=== PATIENT | female | born 2000 | race Caucasian/White ===

== ENCOUNTER 2023-05-01 17:05 | Emergency (ER) | payer SELFPAY ==
[2023-05-01 17:06] VITALS: BP 126/85
[2023-05-01 18:19] VITALS: BMI 17.8
[2023-05-01 18:25] VITALS: BP 127/87
[2023-05-01 19:00] VITALS: BP 134/88
[2023-05-01] MEDS: TYLENOL 650 MG PO (19:40)
[2023-05-01] MEDS: ZOFRAN ODT (ORALLY DISINTEGRATING) 4 MG PO (19:41)
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
[2023-05-01 20:00] VITALS: BP 126/89
[2023-05-01 20:42] LABS: HCG, Serum Qualitative Screen Negative
[2023-05-01 22:52] VITALS: BP 130/87
== END 2023-05-01 22:54 | disposition home or self-care (01) ==
LOC: EMR 17:05
PROVIDERS: Clinical Nurse Specialist Family Health; EMERGENCY PHYSICIAN Emergency Medicine; FAMILY PHYSICIAN Nurse Practitioner Family
DX: S06.0XAA Concussion with loss of consciousness status unknown, initial encounter (principal); V89.2XXA Person injured in unspecified motor-vehicle accident, traffic, initial encounter
CPT/HCPCS: 99284; 70450; 71046; 72126; 84703

== ENCOUNTER 2023-05-19 20:34 | Emergency (ER) | payer OTHER, SELFPAY ==
[2023-05-19 20:36] VITALS: BP 152/116
[2023-05-19 20:55] LABS: % Eosinophils 0.3 % (0-6); % Immature Granulocytes 0.2 % (0-0.5); % Lymphocytes 39.9 % (20.5-51.1); % Monocytes 6.3 % (1.7-9.3); % Neutrophils 51.3 % (42.2-75.2); Absolute Basophils 0.1 10^3/uL (0-0.2); Absolute Lymphocytes 2.4 10^3/uL (1.2-3.4); Absolute Monocytes 0.4 10^3/uL (0.1-0.6); Hematocrit 41.6 % (37.0-47.0); Hemoglobin 15.2 g/dL (12.0-16.0); Mean Corp Hgb Conc. 36.5 g/dL (33.0-37.0); Mean Corpuscular Hgb 34.7 pg (27.0-31.0); Mean Platelet Volume 9.1 fL (7.4-10.4); Nucleated Red Blood Cells % 0 %; Platelet Count 275 10^3/uL (130-400); Red Blood Cell Count 4.38 10^6/uL (4.20-5.40); Red Cell Dist. Width 11.9 % (11.5-14.5); White Blood Cell Count 5.9 10^3/uL (4.8-10.8)
[2023-05-19 21:14] LABS: ALT (SGPT) 346 U/L (0-35); Albumin 5.1 g/dl (3.5-5.0); Alkaline Phosphatase 146 U/L (38-126); Blood Urea Nitrogen 7 mg/dl (7-17); Calcium 9.8 mg/dl (8.4-10.2); Carbon Dioxide 28 mmol/L (22-30); Chloride 96 mmol/L (98-107); Glucose 103 mg/dl (70-99); Potassium 3.9 mmol/L (3.5-5.1); Sodium 140 mmol/L (135-145); Total Bilirubin 2.9 mg/dl (0.2-1.3); Total Protein 8.4 g/dl (6.3-8.2); eGFR > 60.00
[2023-05-19 21:34] LABS: AST (SGOT) 967 U/L (14-36); HCG, Serum Qualitative Screen Negative
[2023-05-19 22:09] LABS: Lipase 388 U/L (23-300)
--- NOTE | 2023-05-19 22:37 | ED.GENMED ---
History of Present Illness
General
Chief Complaint: Alcohol Problem
Source: patient and family (Mother)
Exam Limitations: none
Time Seen by Provider: 05/19/23 21:57
Nursing documentation reviewed up to this point in time: agreed with
Travel History
Have you had any contact with someone who has COVID-19?: No
Do you have any symptoms of coronavirus? Fever > 100 degrees, chills, cough, shortness of breath, sore throat, loss of taste or smell, muscle aches, or headache?: No
History of Present Illness
History of Present Illness:
22-year-old female recent college graduate history of bulimia binge drinker deanne Price has been drinking a lot of vodka lately, hit rock bottom she had a DUI brought here for help she feels weak fatigued, feels shaky, she cannot tell me the last
time she drank, she is unsure if she wants inpatient versus outpatient therapy,
Past History
Past History
ED Past Medical History: Asthma and Other (Bulimia)
ED Past Surgical History: Orthopedic (Left hip bone graft)
Social History
Tobacco: Non-smoker
Alcohol: Binge drinker
Drug: None
Personal: Single
Living: with family
Employment: Not employed
Review of Systems
Review of Systems
Other source history: family
All Other Systems: Not applicable
ABD/GI: Reports abdominal pain and nausea
Musculoskeletal: Reports no symptoms
Neurological: Reports weakness
Psychiatric: Reports anxiety; Denies depression or suicidal
Phy Exam
Physical Exam
Physical Exam:
Physical Exam
General: no apparent distress, not acutely ill
Neck: No jaundice
Heart: Tachycardia
Lungs: no acute respiratory distress. clear bilaterally
Abdomen: Mild epigastric tenderness
Neuro: Mild tremor
Skin: no rash
Psychiatric: cooperative
Extremities: no edema.
Scores
Withdrawal Assessment of Alcohol
Withdrawal Assessment Completed?: Yes
Nausea and Vomiting: Mild nausea with no vomiting
Tactile Disturbances: Very mild itching, pins and needles, burning or numbness
Tremor: Moderate, with patient's arms extended
Auditory Disturbances: Not present
Paroxysmal Sweats: No sweat visible
Visual Disturbances: Not present
Anxiety: Mild anxiety
Headache, Fullness in Head: Very mild
Agitation: Moderately fidgety and restless
Orientation and clouding of sensorium: Oriented and can do serial additions
Total CIWA Score: 12
Alcohol Withdrawal Medication Recommendation: Equal to MSAS Score 5-7. Lorazepam 1mg IV or PO NOW & re-assess q2hrs
Course
Orders/Labs/Results
Orders:
Orders
05/19/23 20:43
Test Result ONCE
05/19/23 20:47
Alcohol Urgent
CMP [Comprehensive Metabolic Panel] Urgent
Complete Blood Count/With Diff Urgent
HCG, Serum Qualitative Screen Urgent
Lipase Urgent
Magnesium Urgent
Comment: ADD ON
05/19/23 22:34
Add On- LAB Urgent
Tests Added?: magnesium
0.9% Sodium Chloride 1000 ml [Nss] 1,000 ml IV BOLUS
05/19/23 22:37
Urine Drug Abuse Screen Urgent
Date Specimen was Collected: 05/20/23
Time Specimen was Collected: 00:38
05/19/23 22:44
Lorazepam [Ativan] 1 mg PO NOW STA
05/19/23 22:46
Warm Handoff Consult ONCE
Patient agreeable to Warm Hand off: Yes
Call made to [phone]: Spoke with CRS
05/20/23 01:00
0.9% Sodium Chloride 1000 ml [Nss] 1,000 ml Mvi, Adult [Multivitamin] 10 ml Thiamine Injection 100 mg IV 250 mls/hr
Abnormal Lab Results
05/19/23
20:47
MCH 34.7 H pg
(27.0-31.0)
Chloride 96 L mmol/L
(98-107)
Glucose 103 H mg/dl
(70-99)
Total Bilirubin 2.9 H mg/dl
(0.2-1.3)
AST 967 H* U/L
(14-36)
ALT 346 H U/L
(0-35)
Alkaline Phosphatase 146 H U/L
(38-126)
Total Protein 8.4 H g/dl
(6.3-8.2)
Albumin 5.1 H g/dl
(3.5-5.0)
Lipase 388 H U/L
(23-300)
Alcohol, Quantitative 465 H* mg/dl
05/19/23 20:47
05/19/23 20:47
Vital Signs
Initial and Last Documented VS:
Initial Vital Signs
Temp Pulse Resp BP Pulse Ox
97.4 F 128 24 152/116 96
05/19/23 20:36 05/19/23 20:36 05/19/23 20:36 05/19/23 20:36 05/19/23 20:36
Last Documented Vital Signs
Temp Pulse Resp BP Pulse Ox
97.4 F 128 24 152/116 96
05/19/23 20:36 05/19/23 20:36 05/19/23 20:36 05/19/23 20:36 05/19/23 20:36
MDM/Problems Addressed
Differential Diagnosis Includes:
Alcoholism alcohol withdrawal alcohol intoxication electrolyte abnormality
MDM/Problems Addressed:
Alcoholic
Chronic conditions affecting care:
Bulimia
*Critical Care Note
Total Time (30-74mins, 75-104mins- exclusive of procedures): Not Applicable
Update Note
Update Note:
Update 10:45 PM, will add magnesium, start some fluids/thiamine/lorazepam, spoke with crisis and be CARES patient appears to be motivated to get some help
Update labs including BAL are noted,
2:30 AM patient is cleared by crisis, patient was seen by [place] quiroz and have recommended inpatient, patient has declined, been treated with thiamine folate, has an adult with her to take her home
ED Attending Note
-
Portions of this chart may have been created with voice recognition software.� Occasional wrong word or��sound alike� substitutions may have occurred due to the inherent limitations of voice recognition software.
Discharge Plan
Departure
Patient Disposition: Home (Routine Discharge)
Date of Disposition: 05/20/23
Time of Disposition: 02:23
Patient with high blood pressure during this ER visit?: No
Condition: Good
Discharge Problem:
Alcoholism
Instructions: Alcohol Use Disorder (DC)
Prescriptions:
No Action
No Current Medications
hydrocodone-acetaminophen 1 TABLET tablet
1 tab PO Q4HPRN PRN (Reason: pain) Qty: 15 0RF
Referrals:
Greta Milton MD [Family Provider] -
Activity Restrictions/Additional Instructions:
Stop drinking alcohol
Follow-up with the resources given to you by [facility]
Interventions
Interventions:
*Risk Screen - Suicide Last Done: 05/19/23 20:36
*Neglect/Abuse Screening Last Done: 05/19/23 20:36
ED- Fall Risk Assessment Last Done: 05/20/23 00:56
ED- Neurological Assessment Last Done: 05/19/23 21:00
ED-Psychological Assessment Last Done: 05/19/23 21:00
[2023-05-19 22:56] LABS: Alcohol 465 mg/dl; Magnesium 1.9 mg/dl (1.6-2.3)
[2023-05-19] MEDS: ATIVAN 1 MG PO (23:14)
[2023-05-19] MEDS: NSS 1000 IV (23:18)
[2023-05-20] MEDS: MULTIVITAMIN 1011 ML IV (01:06)
[2023-05-20] MEDS: MULTIVITAMIN 1011 MG IV (01:06)
[2023-05-20 01:16] LABS: Amphetamines Negative (Negative); Barbiturates Negative (Negative); Benzodiazepines Negative (Negative); Buprenorphine Negative (Negative); Cocaine Negative (Negative); Marijuana Negative (Negative); Methadone Negative (Negative); Methamphetamines Negative (Negative); Opiates Negative (Negative); Phencyclidine Negative (Negative); Tricyclic Antidepressants Negative (Negative)
[2023-05-20 03:14] VITALS: BP 99/62
== END 2023-05-20 03:25 | disposition home or self-care (01) ==
LOC: EMR 20:34
PROVIDERS: Emergency Medicine; EMERGENCY PHYSICIAN Emergency Medicine; FAMILY PHYSICIAN Family Medicine
DX: F10.229 Alcohol dependence with intoxication, unspecified (principal); Y90.8 Blood alcohol level of 240 mg/100 ml or more; R53.1 Weakness; R10.816 Epigastric abdominal tenderness; R25.1 Tremor, unspecified; F50.2 Bulimia nervosa; J45.909 Unspecified asthma, uncomplicated; F41.9 Anxiety disorder, unspecified; U09.9 Post COVID-19 condition, unspecified; F32.A Depression, unspecified; F42.9 Obsessive-compulsive disorder, unspecified; Z87.820 Personal history of traumatic brain injury
CPT/HCPCS: 99284; 96365; 96366; 80053; 80306; 82077; 83690; 83735; 84703; 85025

== ENCOUNTER 2023-05-21 14:26 | Emergency (ER) | payer OTHER, SELFPAY ==
[2023-05-21 14:28] VITALS: BP 114/81
[2023-05-21 15:01] LABS: % Basophils 2.5 % (0-2); % Eosinophils 1.6 % (0-6); % Immature Granulocytes 0.2 % (0-0.5); % Lymphocytes 49.7 % (20.5-51.1); % Monocytes 7.8 % (1.7-9.3); % Neutrophils 38.2 % (42.2-75.2); Absolute Basophils 0.1 10^3/uL (0-0.2); Absolute Eosinophils 0.1 10^3/uL (0-0.7); Absolute Lymphocytes 2.2 10^3/uL (1.2-3.4); Absolute Monocytes 0.3 10^3/uL (0.1-0.6); Absolute Neutrophils 1.7 10^3/uL (1.4-6.5); Hematocrit 35.5 % (37.0-47.0); Hemoglobin 12.6 g/dL (12.0-16.0); Mean Corp Hgb Conc. 35.5 g/dL (33.0-37.0); Mean Corpuscular Hgb 34.4 pg (27.0-31.0); Mean Platelet Volume 9.7 fL (7.4-10.4); Nucleated Red Blood Cells % 0 %; Platelet Count 199 10^3/uL (130-400); Red Blood Cell Count 3.66 10^6/uL (4.20-5.40); Red Cell Dist. Width 11.9 % (11.5-14.5); White Blood Cell Count 4.4 10^3/uL (4.8-10.8)
[2023-05-21 15:14] LABS: HCG, Serum Qualitative Screen Negative
[2023-05-21 15:23] LABS: ALT (SGPT) 303 U/L (0-35); Albumin 4.6 g/dl (3.5-5.0); Alcohol 265 mg/dl; Alkaline Phosphatase 167 U/L (38-126); Blood Urea Nitrogen 3 mg/dl (7-17); Calcium 9.3 mg/dl (8.4-10.2); Carbon Dioxide 29 mmol/L (22-30); Chloride 102 mmol/L (98-107); Glucose 91 mg/dl (70-99); Potassium 4.2 mmol/L (3.5-5.1); Sodium 140 mmol/L (135-145); Total Bilirubin 1.8 mg/dl (0.2-1.3); Total Protein 7.4 g/dl (6.3-8.2); eGFR > 60.00
[2023-05-21 15:31] LABS: AST (SGOT) 811 U/L (14-36)
--- NOTE | 2023-05-21 18:50 | ED.GENMED ---
History of Present Illness
General
Chief Complaint: Alcohol Problem
Source: patient
Exam Limitations: none
Time Seen by Provider: 05/21/23 18:37
Nursing documentation reviewed up to this point in time: agreed with
Travel History
Have you had any contact with someone who has COVID-19?: No
Do you have any symptoms of coronavirus? Fever > 100 degrees, chills, cough, shortness of breath, sore throat, loss of taste or smell, muscle aches, or headache?: No
History of Present Illness
History of Present Illness:
Patient to ED requesting medical clearance to enter alcohol rehab. She was seen in ED yesterday but decided against rehab at that time. Brought self back to ED, reports last drink was this AM. No other complaints
Past History
Past History
ED Past Medical History: Asthma and Other (Bulimia)
ED Past Surgical History: Orthopedic (Left hip bone graft)
Social History
Tobacco: Non-smoker
Alcohol: Binge drinker
Drug: None
Personal: Single
Living: with family
Employment: Not employed
Review of Systems
Review of Systems
Allergies reviewed?: Yes
All Other Systems: ROS reviewed and negative except as documented in HPI and ROS
Constitutional: Reports no symptoms
EENT: Reports no symptoms
Respiratory: Reports no symptoms
Cardiac: Reports no symptoms
ABD/GI: Reports no symptoms
: Reports no symptoms
Musculoskeletal: Reports no symptoms
Skin: Reports no symptoms
Neurological: Reports no symptoms
Psychiatric: Reports no symptoms
Phy Exam
General Physical Exam
General Presentation: well appearing and no apparent distress
General age: appears stated age
General Skin: warm and dry
General Habitus: normal
General Mental: alert
General Hydration: appears well hydrated
Cardiovascular Exam
Cardiovascular Exam: regular rate/rhythm and no edema
Pulmonary Exam
Pulmonary Exam: lungs clear and no respiratory distress
Gastrointestinal Exam
Gastrointestinal Exam: normal bowel sounds and non tender
Neurological Exam
Neurological Exam: alert, oriented x3, CN II-XII intact, no motor deficits, no sensory deficits and normal gait
Musculoskeletal Exam
Musculoskeletal Exam: full ROM and neuro vasc intact
Skin Exam
Skin Exam: normal color, warm/dry and no rash
Psychiatric Exam
Psychiatric Exam: normal mood/affect
Scores
Withdrawal Assessment of Alcohol
Withdrawal Assessment Completed?: Yes
Nausea and Vomiting: Mild nausea with no vomiting
Tactile Disturbances: None
Tremor: No tremor
Auditory Disturbances: Not present
Paroxysmal Sweats: No sweat visible
Visual Disturbances: Not present
Anxiety: No anxiety, at ease
Headache, Fullness in Head: Not present
Agitation: Normal activity
Orientation and clouding of sensorium: Oriented and can do serial additions
Total CIWA Score: 1
Alcohol Withdrawal Medication Recommendation: Equal to MSAS Score 0-4. Monitor & re-assess q2hrs, NO MEDICATION NEEDED
Course
Orders/Labs/Results
Orders:
Orders
05/21/23 14:31
Test Result ONCE
05/21/23 14:39
Alcohol Urgent
Complete Blood Count/With Diff Urgent
Comprehensive Metabolic Panel Urgent
HCG, Serum Qualitative Screen Urgent
05/21/23 21:29
Lorazepam [Ativan] 1 mg PO NOW STA
Ondansetron Orally Disint [Zofran Odt (Orally Disintegrating)] 4 mg PO NOW STA
Abnormal Lab Results
05/21/23
14:39
WBC 4.4 L 10^3/uL
(4.8-10.8)
RBC 3.66 L 10^6/uL
(4.20-5.40)
Hct 35.5 L %
(37.0-47.0)
MCH 34.4 H pg
(27.0-31.0)
Neutrophils % 38.2 L %
(42.2-75.2)
Basophils % 2.5 H %
(0-2)
BUN 3 L mg/dl
(7-17)
Creatinine 0.5 L mg/dL
(0.6-1.0)
Total Bilirubin 1.8 H D mg/dl
(0.2-1.3)
AST 811 H* U/L
(14-36)
ALT 303 H U/L
(0-35)
Alkaline Phosphatase 167 H U/L
(38-126)
05/21/23 14:39
05/21/23 14:39
Vital Signs
Initial and Last Documented VS:
Initial Vital Signs
Temp Pulse Resp BP Pulse Ox
98.5 F 115 18 114/81 96
05/21/23 14:28 05/21/23 14:28 05/21/23 14:28 05/21/23 14:28 05/21/23 14:28
Last Documented Vital Signs
Temp Pulse Resp BP Pulse Ox
98.5 F 107 18 133/103 97
05/21/23 14:28 05/21/23 21:40 05/21/23 21:40 05/21/23 21:40 05/21/23 21:40
*Critical Care Note
Total Time (30-74mins, 75-104mins- exclusive of procedures): Not Applicable
Update Note
Update Note:
Labs reviewed. ELevated LFT's noted. Last panel was completed by PCP 10/30. AST/ALT both in the low 100's at that time. US at that time showed mild hepatomegaly. Tonights levels significicantly elevated. Patient labs reviewed with Dr. Myles.
Recommends proceeding with plan for inpatient alcohol rehab. Patient and her father were notified of the elevated LFT's.
ED Attending Note
-
Portions of this chart may have been created with voice recognition software.� Occasional wrong word or��sound alike� substitutions may have occurred due to the inherent limitations of voice recognition software.
Discharge Plan
Departure
Patient Disposition: Acute Rehab Facility
Date of Disposition: 05/21/23
Time of Disposition: 21:30
Patient with high blood pressure during this ER visit?: No
Condition: Good
Covid-19: Not Applicable
Discharge Problem:
Medical clearance for psychiatric admission
Prescriptions:
No Action
No Current Medications
hydrocodone-acetaminophen 1 TABLET tablet
1 tab PO Q4HPRN PRN (Reason: pain) Qty: 15 0RF
Referrals:
Marci Reese CRNP [Family Provider] -
Activity Restrictions/Additional Instructions:
Beth Abbasi is medically cleared for admission to psychatric, alcohol rehab facility.
Interventions
Interventions:
*Risk Screen - Suicide Last Done: 05/21/23 14:28
*General Assessment Last Done: 05/21/23 14:28
*Neglect/Abuse Screening Last Done: 05/21/23 14:28
ED- Fall Risk Assessment Last Done: 05/21/23 21:12
*ED COVID-19 Vaccine History Last Done: 05/21/23 14:28
*Nursing Disposition Last Done: 05/21/23 21:37
ED- Neurological Assessment Last Done: 05/21/23 21:12
ED-Psychological Assessment Last Done: 05/21/23 21:12
Discharge Date and Time
Discharge Date/Time: 05/21/23 21:41
[2023-05-21] MEDS: ATIVAN 1 MG PO (21:33)
[2023-05-21] MEDS: ZOFRAN ODT (ORALLY DISINTEGRATING) 4 MG PO (21:33)
[2023-05-21 21:40] VITALS: BP 133/103
== END 2023-05-21 21:41 ==
LOC: EMR 14:26
PROVIDERS: EMERGENCY PHYSICIAN Emergency Medicine; FAMILY PHYSICIAN Nurse Practitioner Family
DX: Z00.8 Encounter for other general examination (principal); J45.909 Unspecified asthma, uncomplicated; F50.2 Bulimia nervosa
CPT/HCPCS: 99283; 80053; 82077; 84703; 85025

== ENCOUNTER 2024-09-15 20:09 | Emergency (ER) | payer OTHER, MEDICAID, SELFPAY ==
[2024-09-15 20:14] VITALS: BP 137/96
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
== END 2024-09-16 00:11 | disposition home or self-care (01) ==
LOC: EMR 20:09
PROVIDERS: EMERGENCY PHYSICIAN Emergency Medicine
DX: F41.9 Anxiety disorder, unspecified (principal); R45.851 Suicidal ideations; Y09 Assault by unspecified means; Y07.031 Male partner, former, perpetrator of maltreatment and neglect; F10.90 Alcohol use, unspecified, uncomplicated; J45.909 Unspecified asthma, uncomplicated; F42.9 Obsessive-compulsive disorder, unspecified; F50.20 Bulimia nervosa, unspecified
CPT/HCPCS: 99283

== ENCOUNTER 2024-10-04 11:30 | Emergency (ER) | payer OTHER, SELFPAY ==
[2024-10-04] VITALS (8 sets, daily range): BP systolic 118–155; BP diastolic 80–100; BMI 20.1
[2024-10-04 12:30] LABS: Hematocrit 44.2 % (37.0-47.0); Hemoglobin 16.1 g/dL (12.0-16.0); Mean Corp Hgb Conc. 36.4 g/dL (33.0-37.0); Mean Corpuscular Volume 86.0 fL (81.0-99.0); Nucleated Red Blood Cells % 0 %; Platelet Count 284 10^3/uL (130-400); Red Cell Dist. Width 13.3 % (11.5-14.5)
[2024-10-04 12:46] LABS: ALT (SGPT) 144 U/L (0-35); AST (SGOT) 251 U/L (14-36); Albumin 5.3 g/dl (3.5-5.0); Alkaline Phosphatase 103 U/L (38-126); Blood Urea Nitrogen 8 mg/dl (7-17); Calcium 9.4 mg/dl (8.4-10.2); Carbon Dioxide 28 mmol/L (22-30); Chloride 91 mmol/L (98-107); Glucose 94 mg/dl (70-99); Potassium 3.5 mmol/L (3.5-5.1); Sodium 137 mmol/L (135-145); Total Protein 8.2 g/dl (6.3-8.2); eGFR > 60.00
--- NOTE | 2024-10-04 15:29 | ED.GENMED ---
History of Present Illness
General
Chief Complaint: Alcohol Problem
Source: patient
Exam Limitations: none
Time Seen by Provider: 10/04/24 15:22
History of Present Illness
History of Present Illness:
24-year-old female presents for help with her alcohol abuse. She went on a binge the last 2 weeks. She has been drinking vodka pretty consistently. Last drink was this morning. She feels very weak she is nauseous she is vomiting. She does note
a remote history of alcohol withdrawal seizures. She was here couple weeks ago for similar issues and was referred to outpatient treatment and never set this up. She is healthy otherwise. No other complaints at this time
Past History
Past History
ED Past Medical History: Asthma and Other (Bulimia)
ED Past Surgical History: Orthopedic (Left hip bone graft)
Social History
Tobacco: Non-smoker
Alcohol: Binge drinker
Drug: None
Personal: Single
Living: with family
Employment: Not employed
Phy Exam
Physical Exam
Physical Exam:
General: Well-appearing female no acute respiratory distress
HEENT: Normocephalic atraumatic
Heart: Tachycardic but regular
Lungs: Clear no wheeze
Abdomen is soft nontender
Extremities: No cyanosis
Neurologic exam: No obvious tremor normal gait conversing appropriately no
Scores
Withdrawal Assessment of Alcohol
Withdrawal Assessment Completed?: No
Course
Orders/Labs/Results
Orders:
Orders
10/04/24 12:00
Electrocardiogram (*1) Urgent
Reason for Study: Other
Other Reason for Exam: withdrawal
EKG- Treatment ONCE
10/04/24 12:14
Complete Blood Count/With Diff Urgent
Comprehensive Metabolic Panel Urgent
10/04/24 15:28
0.9% Sodium Chloride 1000 ml [Nss] 1,000 ml IV BOLUS
Lorazepam [Ativan] 1 mg IV NOW STA
10/04/24 17:38
0.9% Sodium Chloride 1000 ml [Nss] 1,000 ml IV BOLUS
Lorazepam [Ativan] 1 mg IV NOW STA
Abnormal Lab Results
10/04/24
12:14
Hgb 16.1 H g/dL
(12.0-16.0)
MCH 31.3 H pg
(27.0-31.0)
Monocytes % 9.4 H %
(1.7-9.3)
Chloride 91 L mmol/L
(98-107)
AST 251 H U/L
(14-36)
ALT 144 H U/L
(0-35)
Albumin 5.3 H g/dl
(3.5-5.0)
10/04/24 12:14
10/04/24 12:14
Vital Signs
Initial and Last Documented VS:
Initial Vital Signs
Temp Pulse Resp BP Pulse Ox
98.0 F 131 16 155/92 98
10/04/24 11:56 10/04/24 11:56 10/04/24 11:56 10/04/24 11:56 10/04/24 11:56
Last Documented Vital Signs
Temp Pulse Resp BP Pulse Ox
97.6 F 106 13 118/92 97
10/04/24 16:00 10/04/24 16:00 10/04/24 16:00 10/04/24 16:00 10/04/24 16:00
MDM/Problems Addressed
Differential Diagnosis Includes:
Patient here for help with her alcohol addiction. She is tachycardic and hypertensive at triage. Last alcoholic ingestion was this morning. Question dehydration versus withdrawal. Will hydrate Ativan ordered. Will contact [facility]
*Pulse Oximetry
SaO2: 98
Oxygen Mode of Delivery: Room air
Patient hypoxic: no
*Critical Care Note
Total Time (30-74mins, 75-104mins- exclusive of procedures): Not Applicable
Update Note
Update Note:
Patient reevaluated multiple times. Most recent set of vital signs showed a heart rate in the low 100s. Blood pressure has improved. She spoke with bud. [facility] cares recommended inpatient detox however patient declined. She wishes to go home and
do an intense outpatient program. Resources for this were given to her by [facility]. Did prescribe a limited number of Ativan and Zofran for her symptoms. Return precautions were given
ED Attending Note
-
Portions of this chart may have been created with voice recognition software.� Occasional wrong word or��sound alike� substitutions may have occurred due to the inherent limitations of voice recognition software.
Discharge Plan
Departure
Patient Disposition: Home (Routine Discharge)
Date of Disposition: 10/04/24
Time of Disposition: 19:36
Patient with high blood pressure during this ER visit?: No
Discharge Problem:
Alcohol abuse
Instructions: Alcohol Use Disorder (DC)
Prescriptions:
New
lorazepam [Ativan] 0.5 mg tablet
0.5 mg PO BID PRN (Reason: alcohol withdrawal) Qty: 4 0RF
ondansetron 4 mg tablet,disintegrating
4 mg PO Q8H PRN (Reason: nausea and vomiting) Qty: 10 0RF
Referrals:
Greta Milton MD [Family Provider, Family Practice]
Activity Restrictions/Additional Instructions:
Seek further treatment at outpatient therapy as recommended. Please return here for worsening symptoms.
Interventions
Interventions:
*Risk Screen - Suicide Last Done: 10/04/24 11:56
*General Assessment Last Done: 10/04/24 16:00
*Neglect/Abuse Screening Last Done: 10/04/24 11:56
*ED- Fall Risk Assessment Last Done: 10/04/24 16:00
*ED COVID-19 Vaccine History Last Done: 10/04/24 16:00
ED- Neurological Assessment Last Done: 10/04/24 16:00
ED-Psychological Assessment Last Done: 10/04/24 16:00
Discharge Date and Time
Print Language: FRENCH
[2024-10-04] MEDS: NSS 1000 IV ×2 (15:57→17:45)
[2024-10-04] MEDS: ATIVAN 1 MG IV ×2 (15:57→17:43)
== END 2024-10-04 20:13 | disposition home or self-care (01) ==
LOC: EMR 11:30
PROVIDERS: Emergency Medicine; EMERGENCY PHYSICIAN Emergency Medicine; FAMILY PHYSICIAN Family Medicine
DX: F10.10 Alcohol abuse, uncomplicated (principal); J45.909 Unspecified asthma, uncomplicated
CPT/HCPCS: 99284; 96374; 96376; 96361 ×2; 80053; 85025; 93005

== ENCOUNTER 2024-11-17 16:55 | Inpatient (IN) | payer OTHER, SELFPAY ==
[2024-11-17] VITALS (9 sets, daily range): BP systolic 98–144; BP diastolic 58–108; BMI 21.6; BMI 21.7
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
[2024-11-17] MEDS: NSS 1000 IV (14:21)
[2024-11-17 14:39] LABS: Hematocrit 44.1 % (37.0-47.0); Hemoglobin 15.5 g/dL (12.0-16.0); Mean Corp Hgb Conc. 35.1 g/dL (33.0-37.0); Mean Corpuscular Volume 88.0 fL (81.0-99.0); Nucleated Red Blood Cells % 0 %; Platelet Count 425 10^3/uL (130-400); Red Cell Dist. Width 12.1 % (11.5-14.5)
[2024-11-17 14:43] LABS: Urine Character Slightly Cloudy (Clear)
[2024-11-17 14:46] LABS: HCG, Urine Qualitative Screen Negative
[2024-11-17 14:52] LABS: ALT (SGPT) 161 U/L (0-35); AST (SGOT) 321 U/L (14-36); Albumin 5.3 g/dl (3.5-5.0); Alkaline Phosphatase 97 U/L (38-126); Blood Urea Nitrogen 10 mg/dl (7-17); Calcium 9.4 mg/dl (8.4-10.2); Carbon Dioxide 23 mmol/L (22-30); Chloride 101 mmol/L (98-107); Estimated Creatinine Clearance 114 ml/min; Glucose 85 mg/dl (70-99); Potassium 4.0 mmol/L (3.5-5.1); Sodium 142 mmol/L (135-145); Total Protein 8.1 g/dl (6.3-8.2); eGFR > 60.00
[2024-11-17 14:54] LABS: Urine Red Blood Cell 0-2 /HPF (0-2); Urine Squamous Cell 26-30 /LPF (Few); Urine White Cell 80-90 /HPF (0-5)
[2024-11-17] MEDS: VALIUM INJECTION 5 MG IV (15:33)
[2024-11-17] MEDS: ZOFRAN 4 MG IV ×2 (15:34→20:33)
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
[2024-11-17] MEDS: STERILE WATER FOR INJECTION 10 ML IV (17:14)
[2024-11-17] MEDS: PHENOBARBITAL 104 MG IV (17:14)
[2024-11-17] MEDS: NSS (PRESERVATIVE FREE) 10 ML IV (17:14)
[2024-11-17] MEDS: ROCEPHIN 1000 MG IV (17:14)
[2024-11-17] MEDS: PROTONIX IV 40 MG IV (17:14)
[2024-11-17] MEDS: THIAMINE INJECTION 200 MG IV (20:33)
[2024-11-17] MEDS: ATIVAN 1 MG PO (20:34)
[2024-11-17] MEDS: MELATONIN 10 MG PO (20:34)
[2024-11-17] MEDS: PHENOBARBITAL 97.5 MG IV (21:23)
[2024-11-17] MEDS: MINIPRESS 2 MG PO (21:23)
[2024-11-18] VITALS (10 sets, daily range): BP systolic 94–134; BP diastolic 53–97; BMI 21.7
--- NOTE | 2024-11-18 00:59 | PTCARENOTE ---
Received pt from ED at beginning of shift. Pt initial MSAS 4. Pt with recent UTI, UA dirty, on IV rocephin Q24H. On phenobarb taper with PRN ativan and valium. 1mg PO ativan given @20:34 for MSAS 6. Pt resting comfortably in bed at this time. VSS.
Care ongoing.
[2024-11-18 06:04] LABS: Hematocrit 35.7 % (37.0-47.0); Hemoglobin 12.5 g/dL (12.0-16.0); Mean Corp Hgb Conc. 35.0 g/dL (33.0-37.0); Mean Corpuscular Volume 88.8 fL (81.0-99.0); Platelet Count 290 10^3/uL (130-400); Red Cell Dist. Width 11.9 % (11.5-14.5)
[2024-11-18 06:17] LABS: ALT (SGPT) 153 U/L (0-35); AST (SGOT) 224 U/L (14-36); Albumin 4.4 g/dl (3.5-5.0); Alkaline Phosphatase 78 U/L (38-126); Blood Urea Nitrogen 12 mg/dl (7-17); Calcium 9.3 mg/dl (8.4-10.2); Carbon Dioxide 25 mmol/L (22-30); Chloride 96 mmol/L (98-107); Estimated Creatinine Clearance 109 ml/min; GGTP 48 U/L (12-43); Glucose 52 mg/dl (70-99); Magnesium 1.5 mg/dl (1.6-2.3); Potassium 4.2 mmol/L (3.5-5.1); Sodium 132 mmol/L (135-145); Total Protein 6.9 g/dl (6.3-8.2); eGFR > 60.00
--- NOTE | 2024-11-18 06:20 | PTCARENOTE ---
pt blood glucose 52 in am labs. accucheck result 57. 2 apple juice cups given, will recheck blood glucose in 15 minutes. pt appears drowsy but otherwise aaox3 and asymptomatic.
[2024-11-18 06:30] LABS: Glucose - Point of Care 57 mg/dl (70-99)
[2024-11-18 06:52] LABS: Glucose - Point of Care 66 mg/dl (70-99)
[2024-11-18 07:41] LABS: Glucose - Point of Care 86 mg/dl (70-99)
--- NOTE | 2024-11-18 07:58 | PTCARENOTE ---
Assumed care of pt this am after morning report and rounds. Pt is drowsy but arousable to verbal. She is oriented x 3 and denies complaints except for feeling tired at this time. PT's blood glucose low on am labs, treated by night RN and accucheck
is now 86. Pt placed on confidential status due to nature of admission at this time. ED department notified to contact [facility] as pt ETOH level is now <10 and pt appears to be able to consent. Dr. Tineo notified of morning updates. Order
received for Magnesium rider
[2024-11-18] MEDS: MAGNESIUM SULFATE 100 IV (08:16)
[2024-11-18] MEDS: PHENOBARBITAL 97.5 MG IV ×3 (08:17→21:15)
[2024-11-18] MEDS: FOLVITE 1 MG PO (08:19)
[2024-11-18] MEDS: THIAMINE INJECTION 200 MG IV ×2 (08:19→20:24)
[2024-11-18] MEDS: LEXAPRO 10 MG PO (08:19)
[2024-11-18] MEDS: PROTONIX 40 MG PO (08:19)
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
[2024-11-18 10:11] LABS: Glucose - Point of Care 65 mg/dl (70-99)
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
[2024-11-18 10:37] LABS: Glucose - Point of Care 75 mg/dl (70-99)
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
[2024-11-18 12:41] LABS: Glucose - Point of Care 90 mg/dl (70-99)
[2024-11-18] MEDS: ZOFRAN 4 MG IV ×2 (15:04→21:15)
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
[2024-11-18] MEDS: XYLOCAINE 1% 1 ML INJ (16:13)
[2024-11-18] MEDS: ROCEPHIN 500 MG IM (16:13)
[2024-11-18 17:10] LABS: Blood Urea Nitrogen 6 mg/dl (7-17); Calcium 8.9 mg/dl (8.4-10.2); Carbon Dioxide 22 mmol/L (22-30); Chloride 97 mmol/L (98-107); Estimated Creatinine Clearance 109 ml/min; Glucose 72 mg/dl (70-99); Magnesium 2.2 mg/dl (1.6-2.3); Potassium 4.2 mmol/L (3.5-5.1); Sodium 131 mmol/L (135-145); eGFR > 60.00
[2024-11-18] MEDS: PLAN B ONE-STEP, NEXT CHOICE 2 TABLET PO (17:10)
[2024-11-18] MEDS: ROCEPHIN 1000 MG IV (17:11)
[2024-11-18] MEDS: STERILE WATER FOR INJECTION 10 ML IV (17:17)
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
--- NOTE | 2024-11-18 19:13 | GLUCOSE ---
SITUATION:
24 yo female admitted with ETOH withdrawal morning labwork hypoglycemia, hypoglycemic protocol followed
poor food intake,
BACKGROUND:
am cbs 86, 2 hour follow up 65-pt given OJ, recheck 75. 1230 accucheck 90. 100 labwork Glucose 72.
ASSESSMENT:
drowsy but arousable
RECOMMENDATION:
Pt encouraged to drink juice and not water, pt prefers water but has been cooperative in limiting water intake to a few ice chips.
[2024-11-18] MEDS: FLAGYL 500 MG PO (20:24)
[2024-11-18] MEDS: VIBRAMYCIN 100 MG PO (20:24)
[2024-11-18] MEDS: MINIPRESS 2 MG PO (20:24)
[2024-11-18] MEDS: MELATONIN 10 MG PO (20:24)
--- NOTE | 2024-11-18 22:20 | PTCARENOTE ---
pt aaox3, withdrawn. Parents at bedside. Remains on phenobarb taper and q4 msas. msas score 3. IV zofran given for nausea. Pt resting comfortably in bed at this time. VSS. HR 70-90s, much improved compared to previous night. Care ongoing.
[2024-11-19] VITALS (12 sets, daily range): BP systolic 97–135; BP diastolic 66–107
[2024-11-19 03:21] LABS: Glucose - Point of Care 95 mg/dl (70-99)
[2024-11-19 05:35] LABS: Hematocrit 34.1 % (37.0-47.0); Hemoglobin 12.3 g/dL (12.0-16.0); Mean Corp Hgb Conc. 36.1 g/dL (33.0-37.0); Mean Corpuscular Volume 86.8 fL (81.0-99.0); Platelet Count 234 10^3/uL (130-400); Red Cell Dist. Width 11.7 % (11.5-14.5)
[2024-11-19 06:50] LABS: ALT (SGPT) 119 U/L (0-35); AST (SGOT) 117 U/L (14-36); Albumin 4.1 g/dl (3.5-5.0); Alkaline Phosphatase 60 U/L (38-126); Blood Urea Nitrogen 7 mg/dl (7-17); Calcium 8.9 mg/dl (8.4-10.2); Carbon Dioxide 24 mmol/L (22-30); Chloride 99 mmol/L (98-107); Estimated Creatinine Clearance 109 ml/min; Glucose 84 mg/dl (70-99); Magnesium 1.7 mg/dl (1.6-2.3); Potassium 3.5 mmol/L (3.5-5.1); Sodium 133 mmol/L (135-145); Total Protein 6.4 g/dl (6.3-8.2); eGFR > 60.00
[2024-11-19] MEDS: VIBRAMYCIN 100 MG PO ×2 (09:03→20:10)
[2024-11-19] MEDS: FLAGYL 500 MG PO ×2 (09:03→20:10)
[2024-11-19] MEDS: PHENOBARBITAL 97.5 MG IV ×2 (09:04→15:27)
[2024-11-19] MEDS: PROTONIX 40 MG PO (09:04)
[2024-11-19] MEDS: FOLVITE 1 MG PO (09:04)
[2024-11-19] MEDS: THIAMINE INJECTION 200 MG IV (09:05)
--- NOTE | 2024-11-19 09:58 | PTCARENOTE ---
Pt AAOx3 took pills withoutincident. States she is having odd dreams. Encouraged to order breakfast.
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
--- NOTE | 2024-11-19 12:51 | PTCARENOTE ---
Report to Raquel Sheppard
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
[2024-11-19] MEDS: INDERAL 10 MG PO (14:51)
--- NOTE | 2024-11-19 14:56 | W.PN.UPDATE ---
Update Note
Progress Note Update
complained of agitation. going to rehab likely today. can give one stat dose ativan o.5 mg if patient needs it.
[2024-11-19] MEDS: ROCEPHIN 1000 MG IV (15:28)
[2024-11-19] MEDS: STERILE WATER FOR INJECTION 10 ML IV (15:28)
--- NOTE | 2024-11-19 15:45 | CM ---
Addendum entered by Cecelia Houser 11/19/24 17:22:
re faxed clinicals and await response, CM tubed transportation form to IMU. Facility will provide transportation for patient per [facility]. CM will continue to follow for discharge planning needs.
Addendum entered by Cecelia Houser 11/19/24 16:21:
2nd shift with [facility] is working on acceptance to facility; Theresa [phone].
Original Note:
Patient seen at bedside with physician in IMU. Patient now interested in going to inpatient rehab and decided upon [facility]. CM faxed clinicals at request of [facility] and patient to [phone]. CM awaiting response that patient is accepted for
admission to Inpatient facility. CM will continue to follow for discharge planning needs.
Plan; transfer when accepted to Inpatient treatment facility
--- NOTE | 2024-11-19 17:10 | W.PN.UPDATE ---
Update Note
Progress Note Update
medically clear for d/c to inpt psych facility
[2024-11-19] MEDS: ATIVAN 0.5 MG PO (18:34)
--- NOTE | 2024-11-19 18:47 | PTCARENOTE ---
Patient is for transfer to [facility] with 1:1 support from Theresa the consumer sales representative. Report given to Theresa. Patients parents are at bedside. A one time dose of Ativan 0.5mg administered due to anxiety. MSAS has been less than 4. IV site removed,
belongings packed up by patient. Patient will be transferred shortly.
[2024-11-19] MEDS: THIAMINE INJECTION IV (20:10)
[2024-11-19] MEDS: MINIPRESS 2 MG PO (20:10)
[2024-11-19] MEDS: MELATONIN 10 MG PO (20:10)
[2024-11-19] MEDS: LUMINAL 64.8 MG PO (21:34)
--- NOTE | 2024-11-19 21:57 | PTCARENOTE ---
pt dc to [facility] with [facility] rep via [employer].
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
== END 2024-11-19 21:30 | DRG 897 ==
LOC: IMU 16:55
PROVIDERS: Physician Assistant Medical; ADMITTING PHYSICIAN Hospitalist; ATTENDING PHYSICIAN Internal Medicine; CONSULT PHYSICIAN Psychiatry & Neurology Psychiatry; EMERGENCY PHYSICIAN Emergency Medicine; FAMILY PHYSICIAN Internal Medicine Gastroenterology
DX: F10.239 Alcohol dependence with withdrawal, unspecified (principal); E87.1 Hypo-osmolality and hyponatremia; N39.0 Urinary tract infection, site not specified; F50.20 Bulimia nervosa, unspecified; T74.21XA Adult sexual abuse, confirmed, initial encounter; F10.229 Alcohol dependence with intoxication, unspecified; E83.42 Hypomagnesemia; B96.20 Unspecified Escherichia coli [E. coli] as the cause of diseases classified elsewhere; F32.A Depression, unspecified; F41.9 Anxiety disorder, unspecified; J45.909 Unspecified asthma, uncomplicated; E86.0 Dehydration; Y07.030 Male partner, current, perpetrator of maltreatment and neglect; Y90.8 Blood alcohol level of 240 mg/100 ml or more
CPT/HCPCS: 80048; 80053; 81003; 81015; 81025; 82077; 82962; 82977; 83735; 83930; 84100; 84443; 85025; 85027; 87077; 87086; 87186; 93005; 96361; 96374; 96375; 99285; 99406